=== PATIENT | female | born 1975 | race Caucasian/White ===

== ENCOUNTER 2025-02-27 13:19 | Outpatient (REF) | payer OTHER, SELFPAY ==
--- OUTSIDE RECORDS SUMMARY | 2025-02-27 17:17 | XMS_ITS | Clinical Summary ---
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 Role Phone Unavailable Primary Care Provider [...] Suicidal ideation 09/03/2024 Overview (09/03/2024): hospitalized at [facility] March 2018 Alcohol abuse 04/17/2017 Anxiety 06/08/2011 Moderate dysplasia of cervix 01/22/2010 Lump or mass in breast 12/01/2005 Immunizations Name Administration Dates Next Due Influenza, live, intranasal, trivalent (FluMist) 2yo to less than 50yo 09/06/2024 PPD Test 01/04/2021 [employer] SARS-CoV-2 COVID-19, mRNA, LNP-S, preservative free 02/13/2021,01/23/2021 Td Tetanus diptheria (Tdvax) 7yo and older 08/28 Tdap Tetanus diptheria acell ular pertussis (Boostrix; Adacel) 7yo and older 07/01/2024,05/04/2009 Surgical History Surgery Date Site/Laterality Comments CERVICAL BIOPSY W/ LOOP ELECTRODE EXCISION PROCEDURE: [place] CONIZATION CERVIX W/WO D&C RPR ELTRD EXC; [...] ideation DX:Suicidal id eation; COMMENT: hospitalized at [facility] March 2018 Depression DX:Depression Abnormal mammogram DX:Abnormal [...] in 12 months. BI-RADS: Category 2: Benign [address] [id number] [phone] Procedure Note Cristi Mota MD - 09/03/2024 [...] in 12 months. BI-RADS: Category 2: Benign [address] [id number] [phone] Lisa Aceves MD IMG XR PROCEDURES Final Result * Annual BMP Blood Test (06/24/2024) Pathologist [facility] Annual BMP Blood Test Abstracted Historical Provider HEALTH MAINTENANCE Final Result * (ABNORMAL) Lipid panel (06/24/2024) LDL/HDL Ratio 3 0 - 4 Triglycerides 98 0 - 150 mg/dL Cholesterol 223(A) 0 - 200 mg/dL HDL 69 >=40 mg/dL LDL Cholesterol 135(A) 0 - 100 mg/dL Blood Venous blood specimen / Unknown Result [facility] Provider LAB BLOOD ORDERABLES Ita l Result * HIV Screening (11/02/2020) HIV Screening Abstracted [facility] Provider HEALTH MAINTENANCE Final Result * Hepatitis C Screening (11/02/2020) Hepatitis C Screening Abstracted Historical Provider HEALTH MAINTENANCE Final Result * Pap Smear (01/27/2012) Pathologist [facility] Pap smear Abstracted, no interpretation Result [facility] Provider HEALTH MAINTENANCE Final Result from Last 3 Months or Most Recently Relevant to Health Maintenance Insurance [facility] [address] [place] [address]
[2025-02-28 03:19] LABS: Follicle Stimulating Hormone 140.7 mIU/mL
[2025-02-28 03:34] LABS: Syphilis Screen Nonreactive (Nonreactive)
[2025-02-28 03:49] LABS: HBsAGNum1 0.28 S/CO (0.00-0.99); HIV AB/AG Nonreactive (Nonreactive); HIV Num 1 0.07 S/CO (0.00-0.99); Hepatitis B Surface Antigen Negative (Negative); ~Hepatitis C Antibody Nonreactive (Nonreactive)
[2025-02-28 06:22] LABS: CT PCR NOT DETECTED (Not Detect.); NG PCR NOT DETECTED (Not Detect.)
[2025-03-03 15:09] LABS: HCV Log PCR <1.18 NOT DETECTED Log IU/mL (NOT DETECTED); HepC Viral Load <15 NOT DETECTED IU/mL (NOT DETECTED)
== END 2025-02-27 13:20 | disposition home or self-care (01) ==
LOC: HO.LAB 13:19
PROVIDERS: Visit Provider Advanced Practice Midwife
DX: R76.8 Other specified abnormal immunological findings in serum (principal); N89.8 Other specified noninflammatory disorders of vagina; Z20.2 Contact with and (suspected) exposure to infections with a predominantly sexual mode of transmission
CPT/HCPCS: 83001; 86780; 86803; 87340; 87389; 87491; 87522; 87591

== ENCOUNTER 2025-02-27 13:19 | Outpatient (AMB) | payer OTHER, SELFPAY ==
--- NOTE | 2025-02-27 13:32 | A.OFFVIS_ITS ---
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 She is sexually active with a partner. She has a history of a LEEP many years ago with Slade Bliss MD and she had some miscarriages including a loss at 16 weeks and then she had a successful term delivered at 38 weeks with the vacuum in a very complicated delivery and meconium at delivery necessitating transfer to [facility]. That child contracted some bacterium suspected to be meningitis and very suddenly of complete septic shock and DIC at 14 months. She did attend parental support sessions through [employer] for many years. It has been a few years since she did have client coordinator care she was seen at [facility] for many years but then also at [place] recently. She had her primary care provider through [place] but appointments have been challenging and she is switching over to [place] she has had regular mammograms and she has also had many lumps removed and markers placed she believes she was getting most of the breast care at the [facility] which she thought was part of referral from [place] though may have been at [facility] she is going to be meeting her new primary care provider was at a [facility] practice in [place] in the upcoming couple of months. 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 We had a conversation about this and if the hep C is positive I will refer her for information in Education and discussion of the issues to infectious disease. She went through early menopause at age 43 and she did says she had lots of testing done at [place] at the time and they said there was nothing abnormal it was just early menopause. Her partner is 60 years old and she would not want to conceive at this point in her life though she would have welcome that in her 30s, and earlier. [facility] Medical History (Updated 02/27/25 @ 16:52 by Lore Miller CNM) Anxiety Female Reproductive History Menstrual Age of Menarche: 10 Duration of menses: 3-5 days control method: none Total pregnancies: 1 Full term: 0 History of abnormal pap smear: Yes (1998 abn pap) Physical Exam Vital Signs: BMI result Body Mass Index 27.5 Const General: healthy appearing, comfortable, no acute distress, well developed and alert Nutritional Appearance: average body habitus Orientation/consciousness: patient oriented x3 Limitations: no limitations HEENT Head: Yes normocephalic Neck Neck: Yes normal visual inspection Chest Chest palpation & inspection: normal inspection of the chest Breast/axilla inspection: normal inspection of the breasts and normal inspection of the axillae Breast/axilla palpation: normal palpation of the breasts and normal palpation of the axillae Resp Effort & Inspection: normal respiratory effort GI Inspection: Yes normal to inspection, No Abdominal wall edema and No distended Palpation (GI): Soft to palpation and nontender Other: Erica more impulsive changes noted vagina pink moist some thinning of mucosa cervix is status post LEEP firm tightly closed uterus small midposition to anteverted mobile nontender adnexa nontender good muscle tone, General: Yes bladder normal to palpation External Female Exam: normal external appearance and normal appearance of the urethra Speculum Exam - Vagina: normal appearance of the vagina, normal palpation and normal vaginal discharge Speculum Exam - Cervix: normal appearance of the cervix, normal palpation and nontender Bimanual exam- vagina & uterus: normal bimanual exam, normal palpation, uterine size normal, bladder normal to palpation, consistency normal, normal palpation, uterine mobility normal, uterine shape normal, No Cervical tenderness present, non-tender and no cervical motion tenderness Bimanual Exam- Adnexa, other: normal adnexae, no masses, normal and No adnexal tenderness Neuro General: patient oriented x3 Assessment & Plan Assessment & Plan (1) Hepatitis C antibody detected: Comment: Hep C antibody detected at a recent hospitalization patient was told that all other confirmatory tests were negative patient wants another re test. Code(s): R76.8 - Other specified abnormal immunological findings in serum Category: Medical (2) Well woman exam with routine gynecological exam: Code(s): Z01.419 - Encounter for gynecological examination (general) (routine) without abnormal findings Category: Medical (3) Early menopause occurring in patient age younger than 45 years: Comment: Patient states she had full evaluations at the time at age 43, at [place], all negative. Code(s): E28.319 - Asymptomatic premature menopause Category: Medical (4) Cervical cancer screening: Comment: History of LEEP per Dr. Bliss late . Had cerclage with term after a 16 week loss delivered via vacuum with Dr. Ty Code(s): Z12.4 - Encounter for screening for malignant neoplasm of cervix Category: Medical (5) Breast cancer screening: Comment: Has had multiple masses removed and has markers seen at the [facility] [place]. says next mammogram due in June Code(s): Z12.39 - Encounter for other screening for malignant neoplasm of breast Category: Medical Plan Patient is here for new client coordinator exam. She is sexually active with a partner. She has a history of a LEEP many years ago with Slade Bliss MD and she had some miscarriages including a loss at 16 weeks and then she had a successful term delivered at 38 weeks with the vacuum in a very complicated delivery and meconium at delivery necessitating transfer to [facility]. That child contracted some bacterium suspected to be meningitis and very suddenly of complete septic shock and DIC at 14 months. She did attend parental support sessions through [employer] for many years. It has been a few years since she did have client coordinator care she was seen at [facility] for many years but then also at [place] recently. She had her primary care provider through [place] but appointments have been challenging and she is switching over to [place] she has had regular mammograms and she has also had many lumps removed and markers placed she believes she was getting most of the breast care at the [facility] which she thought was part of referral from [place] though may have been at [facility] she is going to be meeting her new primary care provider was at a [facility] practice in [place] in the upcoming couple of months. 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 We had a conversation about this and if the hep C is positive I will refer her for information in Education and discussion of the issues to infectious disease. She went through early menopause at age 43 and she did says she had lots of testing done at [place] at the time and they said there was nothing abnormal it was just early menopause. Her partner is 60 years old and she would not want to conceive at this point in her life though she would have welcome that in her 30s, and earlier. I recommend she refresher memory about exactly where she had all of her breast biopsies and care and if at all possible continue her assessments for her mammograms at that is site she will be meeting her new [facility] primary care provider within a month or 2 and she should then requested any referrals for mammograms take placed through her through the same site.. At her request I am reordering hep B hep C HIV syphilis testing as well as I through in hep C viral load in anticipation that the hep C maybe positive. Additionally I adding an FSH. Her next mammogram would be due in June which is some months after her primary care visit. She is trying to eat well and take care of herself and is eating a very healthy diet at this time and engaging and lots of support services and continued sobriety work. Because she is not on the portal and life is very stressful at this time I asked her to call early next week to obtain the lab results and to ask to speak to the nurse Orders: Orders Bacterial Vaginosis Panel Today N89.8 - Other specified noninflammatory disorders of vagina Hepatitis B Surface Antigen Today R76.8 - Other specified abnormal immunological findings in serum HIV Ab/Ag Today R76.8 - Other specified abnormal immunological findings in serum Syphilis Screen Today R76.8 - Other specified abnormal immunological findings in serum CT NG by PCR Today N89.8 - Other specified noninflammatory disorders of vagina, Z20.2 - Contact with and (suspected) exposure to infections with a predominantly sexual mode of transmission Pap Smear Today Z00.00 - Encounter for general adult medical examination without abnormal findings Hepatitis C Antibody Today R76.8 - Other specified abnormal immunological findings in serum Follicle Stimulating Hormone Today R76.8 - Other specified abnormal immunological findings in serum Hepatitis C Viral Load Today R76.8 - Other specified abnormal immunological findings in serum Coding Level of Care Code New Pt Prev Care 40-64y([id number]) Diagnoses Hepatitis C antibody detected R76.8 Well woman exam with routine gynecological exam Z01.419 Early menopause occurring in patient age younger than 45 years E28.319 Cervical cancer screening Z12.4 Breast cancer screening Z12.39 Time Spent (min) 60 Comment 100% eliciting history, making plan for followup
[2025-02-27 13:33] VITALS: BMI 27.5
--- OUTSIDE RECORDS SUMMARY | 2025-02-27 15:38 | XMS_ITS | Clinical Summary ---
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 07/01/2024 Active hydrOXYzine HCL (ATARAX) 25 mg tablet Take 1 Tablet by mouth 3 times daily. 07/01/2024 Active Active Problems Problem Noted Date Diagnosed Date Abnormal mammogram 09/03/2024 Depression 09/03/2024 Suicidal ideation 09/03/2024 Overview (09/03/2024): hospitalized at [facility] March 2018 Alcohol abuse 04/17/2017 Anxiety 06/08/2011 Moderate dysplasia of cervix 01/22/2010 Lump or mass in breast 12/01/2005 Immunizations Name Administration Dates Next Due Influenza, live, intranasal, trivalent (FluMist) 2yo to less than 50yo 09/06/2024 PPD Test 01/04/2021 [employer] SARS-CoV-2 COVID-19, mRNA, LNP-S, preservative free 02/13/2021,01/23/2021 Td Tetanus diptheria (Tdvax) 7yo and older 08/28 Tdap Tetanus diptheria acell ular pertussis (Boostrix; Adacel) 7yo and older 07/01/2024,05/04/2009 Surgical History Surgery Date Site/Laterality Comments CERVICAL BIOPSY W/ LOOP ELECTRODE EXCISION PROCEDURE: [place] CONIZATION CERVIX W/WO D&C RPR ELTRD EXC; COMMENT: LELE 3 BREAST BIOPSY PROCEDURE: BX BREAST; PERC NEEDLE CORE W/IMAG GUID; COMMENT: b/l breasts bxs-benign BREAST LUMPECTOMY PROCEDURE: HISTORICAL BREAST LUMPECTOMY; COMMENT: fibroadenoma rt. breast removed Medical History Medical History Date Comments Lump or mass in breast DX:Lump o r mass in breast Other specified personal his tory presenting hazards to health(V15.89) DX:Other specifie d personal history presenting hazards to health(V15.89); COMMENT: LELE 3 on LEEP S/P Leep 01/22/2010 DX:S/P LEEP Moderate dysplasia of cervix 01/22/2010 DX: Moderate dysplasia of cervix Anxiety 06/08/2011 DX:Anxiety Alcohol abuse 04/17/2017 DX:Alcohol abuse Suicidal ideation DX:Suicidal id eation; COMMENT: hospitalized at [facility] March 2018 Depression DX:Depression Abnormal mammogram DX:Abnormal m ammogram Family History Medical History Relation Name Comments Breast cancer Other [place] her, maternal Asthma Sister two sisters wit h asthma Colon cancer Neg Hx Ovarian cancer Neg Hx Relation Name Status Comments Other Sister Social History Tobacco Use Types Packs/Day Years Used Date Smoking Tobacco: Some Days Cigarettes Smokeless Tobacco: Never Alcohol Use Standard Drinks/Week Comments Yes 0 (1 standard drink = 0.6 oz pur e alcohol) Comments Unknown Sex and Gender Information Value Date Recorded Sex Assigned at Not on file Legal Sex Female 5:44 AM EST Gender Identity Not on file Sexual Orientation Not on file Obstetrics History Last Filed Vital Signs Vital Sign Reading Time Taken Comments Blood Pressure 144/80 09/02/2024 4:30 PM EDT Pulse 60 09/02/2024 4:11 PM EDT Temperature - - Respiratory Rate - - Oxygen Saturation - - Inhaled Oxygen Concentration - - Weight 79.8 kg (176 lb) 09/02/2024 4:11 PM EDT Height 165.1 cm (5' 5 ) 09/02/2024 4:11 PM EDT Body Mass Index 29.29 09/02/2024 4:11 PM EDT Plan of Treatment Health Maintenance Due Date Last Done Comments Hepatitis B Vaccines (1 of 3 - 19+ 3-dose series) 1994 Pneumococcal Vaccine: Pediatrics (0 to 5 Years) and At-Risk Patients (6 to 64 Years) (1 of 2 - PCV) 1994 Cervical Cancer Screening: Pap Smear 01/26/2015 01/27/2012 Colorectal Cancer Screening: Colonoscopy 10/09/2022 Social Influencers of Health Screening 10/09/2022 COVID-19 Vaccine ( season) 2024 02/13/2021, 01/23/2021 Hypertension/CHF/CAD Annual BMP Blood Test 06/24/2025 06/24/2024, 06/24/2024 Depression Screening 09/02/2025 09/02/2024 Breast Cancer Screening 08/17/2026 08/17/20 24, 08/17/2024, 08/14/2023, Additional history exists Cholesterol Screening (Lipid Panel) 06/24/2029 06/24/2024, 06/24/2024 DTaP,Tdap,and Td Vaccines (4 - Td or Tdap) 07/01/2034 07/01/2024, 08/28/2010, 05/04/2009 HIV Screening Completed 11/02/2020 Hepatitis C Screening Completed 11/02/2020 Influenza Vaccine Completed 09/06/2024 HIB Vaccines Aged Out No longer eligi ble based on patient's age to complete this topic HPV Vaccines Aged Out No longer eligi ble based on patient's age to complete this topic Hepatitis A Vaccines Aged Out No long er eligible based on patient's age to complete this topic IPV Vaccines Aged Out No longer eligi ble based on patient's age to complete this topic MMR Vaccines Aged Out No longer eligi ble based on patient's age to complete this topic Meningococcal ACWY Vaccine Aged Out N o longer eligible based on patient's age to complete this topic Meningococcal B Vaccine Aged Out No l onger eligible based on patient's age to complete this topic RSV Immunization Patients Under 20 months Aged Out No longer eligible based on patient's age to complete this topic Varicella Vaccines Aged Out No longer eligible based on patient's age to complete this topic Procedures Procedure Name Priority Date/Time Associated Diagnosis Comments HM DEPRESSION SCREENING Routine 09/02/2024 SCREENING MAMMOGRAPHY BI 2-VIEW BREAST INC CAD Routine 08/17/2024 10:09 AM EDT Encounter for screening mammogram for malignant neoplasm of breast ANNUAL BMP BLOOD TEST Routine 06/24/2024 LIPID PANEL Routine 06/24/2024 HEPATITIS C SCREENING Routine 11/02/2020 HIV SCREENING Routine 11/02/2020 PAP SMEAR Routine 01/27/2012 from Last 3 Months or Most Recently Relevant to Health Maintenance Results * Depression Screening (09/02/2024) Depression Screening Abstracted us Historical Provider MD HEALTH MAINTENANCE Final Result * SCREENING MAMMOGRAPHY BI 2-VIEW BREAST INC CAD (08/17/2024 10:09 AM EDT) Anatomical Region Laterality Modality Radiographic Kristen ging 07/26/2024 11:0 4 AM EDT Narrative 08/17/2024 12:27 PM EDT This is a summary report. The complete report is available in the patient's medical record. If you cannot access the medical record, please contact the sending organization for a detailed fax or copy. Study: SCREENING MAMMOGRAPHY BI 2-VIEW BREAST INC CAD Technique: Bilateral full-field digital screening mammography is obtained and read in conjunction with computer aided detection. ??Tomosynthesis as well as 2D C-View imaging were obtained. Comparison: Comparison made to multiple priors, most recent postbiopsy mammogram of the left breast on August 14, 2023, and most remote August 23, 2014. Breast composition: There are scattered areas of fibroglandular density. Right breast: Tissue marker from previous needle core biopsy. ??No suspicious masses, suspicious calcifications or other abnormalities are seen. Left breast: 2 tissue markers from previous needle core biopsies. ??No suspicious masses, suspicious calcifications or other abnormalities are seen. IMPRESSION: Impression: Bilateral breasts: Benign, no specific mammographic evidence of malignancy. ??Normal interval follow-up is recommended in 12 months. BI-RADS: Category 2: Benign [address] [id number] [id number] Procedure Note Cristi Mota MD - 09/03/2024 This is a summary report. The complete report is available in thepatient's medical record. If you cannot access the medical record, pleasecontact the sending organization for a detailed fax or copy. Study: SCREENING MAMMOGRAPHY BI 2-VIEW BREAST INC CAD Technique: Bilateral full-field digital screening mammography is obtainedand read in conjunction with computer aided detection. Tomosynthesis aswell as 2D C-View imaging were obtained. Comparison: Comparison made to multiple priors, most recent postbiopsymammogram of the left breast on August 14, 2023, and most remote 2013. Breast composition: There are scattered areas of fibroglandular density. Right breast: Tissue marker from previous needle core biopsy. Nosuspicious masses, suspicious calcifications or other abnormalities areseen. Left breast: 2 tissue markers from previous needle core biopsies. Nosuspicious masses, suspicious calcifications or other abnormalities areseen. IMPRESSION: Impression: Bilateral breasts: Benign, no specific mammographic evidence ofmalignancy. Normal interval follow-up is recommended in 12 months. BI-RADS: Category 2: Benign [address] [id number] [id number] Lisa Aceves MD IMG XR PROCEDURES Final Result * Annual BMP Blood Test (06/24/2024) Pathologist [facility] Annual BMP Blood Test Abstracted Historical Provider HEALTH MAINTENANCE Final Result * (ABNORMAL) Lipid panel (06/24/2024) LDL/HDL Ratio 3 0 - 4 Triglycerides 98 0 - 150 mg/dL Cholesterol 223(A) 0 - 200 mg/dL HDL 69 >=40 mg/dL LDL Cholesterol 135(A) 0 - 100 mg/dL Blood Venous blood specimen / Unknown Result [facility] Provider LAB BLOOD ORDERABLES Ita l Result * HIV Screening (11/02/2020) HIV Screening Abstracted [facility] Provider HEALTH MAINTENANCE Final Result * Hepatitis C Screening (11/02/2020) Hepatitis C Screening Abstracted Historical Provider HEALTH MAINTENANCE Final Result * Pap Smear (01/27/2012) Pathologist [facility] Pap smear Abstracted, no interpretation Result [facility] Provider HEALTH MAINTENANCE Final Result from Last 3 Months or Most Recently Relevant to Health Maintenance Insurance [facility] [address] [place] [address]
== END 2025-02-27 14:38 | disposition home or self-care (01) ==
LOC: HO.HWSM 13:19
PROVIDERS: Visit Provider Advanced Practice Midwife
DX: Z01.419 Encounter for gynecological examination (general) (routine) without abnormal findings (principal); R76.8 Other specified abnormal immunological findings in serum; E28.319 Asymptomatic premature menopause
CPT/HCPCS: 99386; 99459

== ENCOUNTER 2025-02-27 14:35 | Outpatient (REF) | payer OTHER, SELFPAY ==
[2025-02-28 11:23] LABS: Bacterial Vaginosis PCR POSITIVE (Negative); Candida Group PCR NOT DETECTED (Not Detect); Candida glab krusei PCR NOT DETECTED (Not Detect); Trichomonas vaginalis PCR NOT DETECTED (Not Detect)
[2025-03-04 15:02] LABS: HPV Genotype 16 Negative (Negative); HPV Genotype 18 Negative (Negative); HPV High Risk Negative (Negative)
== END 2025-02-27 14:36 | disposition home or self-care (01) ==
LOC: HO.LNP 14:35
PROVIDERS: Visit Provider Advanced Practice Midwife
DX: Z00.00 Encounter for general adult medical examination without abnormal findings (principal); N89.8 Other specified noninflammatory disorders of vagina; Z12.4 Encounter for screening for malignant neoplasm of cervix; Z11.51 Encounter for screening for human papillomavirus (HPV); Z87.42 Personal history of other diseases of the female genital tract
CPT/HCPCS: 81515; 87626; 88175

== ENCOUNTER 2025-02-27 14:37 | Outpatient (REF) | payer OTHER, SELFPAY | END 2025-02-27 14:38 | disposition home or self-care (01) | LOC: HO.HHCL 14:37 | PROVIDERS: Visit Provider Nurse Practitioner Family | DX: Z13.89 Encounter for screening for other disorder (principal) ==

== ENCOUNTER 2025-03-08 11:21 | Emergency (ER) | payer OTHER, SELFPAY ==
[2025-03-08] VITALS (8 sets, daily range): BP systolic 140–187; BP diastolic 78–122; PULSE 76–95; RESP 18–20; TEMP 36.7–37.2; O2SAT 96–99; BMI 27.7
--- NOTE | 2025-03-08 11:27 | ED.PSYCH ---
HPI - Psych General Chief Complaint: ETOH/Substance Use Stated Complaint: alcohol withdrawal, SI Time Seen by Provider: 03/08/25 11:45 Source: patient Mode of arrival: ambulatory Limitations: no limitations History of Present Illness ED Provider: Anita Ellis APRN HPI Narrative: 49 yo female with history of HTN, alcohol use disorder here with complaints of feeling suicidal with plan to overdose on her home clonidine. History of overdose on prescription medications in the past with ICU admission. Drinks 1-2 pints of vodka daily. Last drink 11pm last evening. No HI, hallucinations. No physical complaints. Related Data Home Medications ?Medication ?Instructions ?Recorded ?Confirmed clonidine HCl 0.1 mg tablet 0.1 mg PO TID 02/27/25 03/08/25 hydroxyzine HCl 25 mg tablet 25 mg PO TID Anxiety 02/27/25 03/09/25 gabapentin 100 mg capsule 100 mg PO BEDTIME 03/08/25 03/08/25 methocarbamol 500 mg tablet 500 mg PO BID muscle pain 03/08/25 03/08/25 Allergies Allergy/AdvReac Type Severity Reaction Status Date / Time No Known Allergies Allergy Verified 03/08/25 11:30 Review of Systems Review of Systems: Yes all other systems are reviewed and are negative Constitutional: Constitutional: Reports no additional constitutional complaints, Denies body ache(s), Denies chills, Denies fever(s), Denies headache(s) and Denies weakness Eyes: Eyes: Reports no additional eye complaints and Denies change in vision ENT: Reports system reviewed and no additional complaints, except as documented, Denies dizziness, Denies headache(s), Denies nasal congestion, Denies nasal discharge and Denies neck pain Cardiovascular: Cardiovascular: Reports no additional cardiovascular complaints, Denies chest pain, Denies leg edema and Denies dyspnea Respiratory: Respiratory: Reports no additional respiratory complaints, Denies cough and Denies dyspnea Gastrointestinal: Gastrointestinal: Reports no additional gastrointestinal complaints, Denies abdominal pain, Denies diarrhea, Denies nausea and Denies vomiting Genitourinary: Genitourinary: Reports no additional female genitourinary complaints and Denies urinary incontinence Musculoskeletal: Musculoskeletal: Reports no additional musculoskeletal complaints, Denies back pain, Denies arthralgias, Denies joint swelling, Denies neck pain, Denies numbness and Denies tingling Integumentary/Breasts: Skin/Breast: Reports system reviewed and no additional complaints, except as docu and Denies rash Neurologic: Reports system reviewed and no additional complaints, except as documented, Denies Abnormal speech present, Denies dizziness, Denies headache(s), Denies numbness, Denies tingling and Denies weakness Psychiatric: Psychiatric: Denies homicidal ideation and Reports suicidal ideation [facility] Past Medical History Attestation statement: The following information was validated with the patient. Source: old records reviewed and nursing notes reviewed Medical History Anxiety Social History Social History Alcohol intake: current Alcohol intake frequency: 3 or more drinks per day Alcohol type: hard liquor Smoked in Last 30 Days: Yes Use of substances other than those prescribed or required for medical reasons: No Advance Directives: No Advance Directives Information Provided: No Patient : No Physical Exam Vital Signs: Vital Signs: Last Vital Signs Temp 98.1 F 03/11/25 07:59 Pulse 85 03/11/25 07:59 Resp 16 03/11/25 07:59 BP 128/76 03/11/25 08:04 Pulse Ox 100 03/11/25 07:59 O2 Del Method Room Air 03/11/25 07:59 BMI result Body Mass Index 27.7 Const: General: alert and anxious Orientation/consciousness: patient oriented x3 Limitations: no limitations HEENT: Head: Yes normal to inspection Ears: hearing grossly normal bilaterally General nose exam: Normal external nose present Face and sinus: Yes normal facial exam Mouth: Normal oral and palatal mucosa present Throat: Yes posterior oropharynx normal Eyes: General: appearance normal, both eyes and all related structures Pupils: Equal, round and reactive pupils present Neck: Neck: Yes normal visual inspection Chest: Chest palpation & inspection: normal inspection of the chest Resp: Effort & Inspection: normal respiratory effort Auscultation: clear to auscultation bilaterally Cardio: Rate: regular rate Rhythm: regular rhythm Peripheral pulses: Peripheral pulses 2+ throughout GI: Inspection: Yes normal to inspection Palpation (GI): Soft to palpation and nontender Auscultation: normal bowel sounds Back/Spine/Pelvis: Thoracic/Lumbar Spine: thoracic and lumbar spine normal to inspection Skin: General skin exam: no rashes or lesions noted Neuro: Other: +tremor General: patient oriented x3, no focal motor deficits and normal sensation to monofilament Cranial nerves: Yes CN's II-XII intact bilaterally and Yes Equal, round and reactive pupils present Cognition (Neuro): normal cognition Speech: No Abnormal speech present Gait exam (Neuro): Normal gait present Motor exam (neuro): 5/5 motor strength present throughout Extrem: General: Yes normal to inspection Course Course Course Narrative: This is an RME performed by Alejandro Mack CNP: Additional HPI, ROS, PE not included below will be deferred to primary provider. Patient is a 49-year-old female who emergency department stating I'm having severe alcohol withdrawals expresses that she is feeling shaky an ativan would take care of that denies any history alcohol withdrawal seizure. Reports that she last drank 22:00 - 23:00 last night, drinking 1-2 pints vodka daily. Endorses having suicidal ideations, various plans. contemplating taking bottle of clonidine, has thought of hanging self. State she was slated to go to a detox center but felt they would not address the depression / S.I. Endorses a prior SI attempt resulting in an ICU stay Plan: Serum labs, CIWA, toxicology Reevaluation(s) Reevaluation #1: Time: 16:35 Date: 03/08/25 Provider: Anita Ellis NP Patient placed in physician observation for psychiatric evaluation.? No current complaints. VS stable.? Patient is in bed search status. Will continue to monitor. Time: 09:13 Date: 03/10/25 Provider: JILL Chang Patient in physician observation for psychiatric evaluation.? No acute events reported overnight. No current complaints. VS stable.? Seen by the care team, recommending inpatient bed search. We will continue to monitor. 03/10/2025 1820 - I went and assessed patient as there was concerns that patient wanted to leave. Patient states that she is not appreciating any suicidal or homicidal ideation. At this time, the care team is working on placement at [facility], and she may potentially have a bed available at 9:15 a.m. this evening. I discussed these details with patient, she is very frustrated would like to leave. She is very argumentative, stating that we have no reason to keep her here. I tried to redirect patient to discuss just further details as I wanted to get a better history to appropriately treat her in her best interest. She states that she just wants to walk out to have a cigarette. I told her that this is not possible however we can medicate her with nicotine gum/lozenges/patches. She states that she would like to be discharged, and she will drive his with river [employer]. She states that she wants to place her car in a safe location, and that she does not want to leave this here overnight. She states that her will pick her up. She then reports that if she is unable to be discharge, she will wait outside for her to be discharged to [facility]. I discussed with her that there is a chance that if she does leave the hospital she may not be able to go to [facility]. I stressed the importance of her staying. She is adamant that she wants to leave. Care team consultation will attempt to call [facility] for possible transfer for [employer]. Medications Administered Generic Name Dose Route Start Last Admin Trade Name Freq PRN Reason Stop Dose Admin Clonidine HCl 0.1 mg 03/08/25 21:00 03/11/25 08:04 Clonidine Hcl 0.1 Mg Tablet PO 0.1 mg TID SUJATHA Administration Protocol Gabapentin 100 mg 03/08/25 21:00 03/10/25 20:47 Gabapentin 100 Mg Capsule PO 100 mg BEDTIME SUJATHA Administration Hydroxyzine HCl 25 mg 03/08/25 19:19 03/10/25 20:48 Hydroxyzine Hcl 25 Mg Tablet PO 25 mg BID PRN Administration Anxiety Lorazepam 2 mg 03/09/25 20:43 03/11/25 10:29 Lorazepam 1 Mg Tablet PO 2 mg Q4H PRN Administration Alcohol Withdrawal Methocarbamol 500 mg 03/08/25 21:00 03/11/25 08:04 Methocarbamol 500 Mg Tablet PO 500 mg BID SUJATHA Administration Discontinued Medications Generic Name Dose Route Start Last Admin Trade Name Freq PRN Reason Stop Dose Admin Acetaminophen 975 mg 03/08/25 13:22 03/08/25 13:26 Acetaminophen 325 Mg Tablet PO 03/08/25 13:23 975 mg ONCE ONE Administration Acetaminophen 650 mg 03/10/25 11:35 03/10/25 11:39 Acetaminophen 325 Mg Tablet PO 03/10/25 11:36 650 mg ONCE ONE Administration Clonidine HCl 0.1 mg 03/08/25 17:07 03/08/25 17:14 Clonidine Hcl 0.1 Mg Tablet PO 03/08/25 17:08 0.1 mg ONCE ONE Administration Protocol Lorazepam 2 mg 03/08/25 11:53 03/08/25 12:07 Lorazepam 1 Mg Tablet PO 03/08/25 11:54 2 mg ONCE ONE Administration Lorazepam 1 mg 03/08/25 17:07 03/08/25 17:14 Lorazepam 1 Mg Tablet PO 03/08/25 17:08 1 mg ONCE ONE Administration Lorazepam 2 mg 03/09/25 03:13 03/09/25 03:17 Lorazepam 1 Mg Tablet PO 03/09/25 03:14 2 mg ONCE ONE Administration Lorazepam 2 mg 03/09/25 08:26 03/09/25 08:30 Lorazepam 1 Mg Tablet PO 03/09/25 08:27 2 mg ONCE ONE Administration Nicotine 14 mg 03/10/25 17:48 03/10/25 18:38 Nicotine 14 Mg Patch.Td24 TRANSDERMA 03/10/25 17:49 Not Given ONCE ONE Nicotine Polacrilex 2 mg 03/10/25 17:48 03/10/25 18:38 Nicotine Polacrilex Lozenge 2 Mg Lozenge BUCCAL 03/10/25 17:49 Not Given ONCE ONE Ondansetron HCl 4 mg 03/08/25 13:22 03/08/25 13:26 Ondansetron Odt 4 Mg Tab.Rapdis TRANSLINGU 03/08/25 13:23 4 mg ONCE ONE Administration Ondansetron HCl 4 mg 03/08/25 17:07 03/08/25 17:16 Ondansetron Odt 4 Mg Tab.Rapdis TRANSLINGU 03/08/25 17:08 4 mg ONCE ONE Administration Ondansetron HCl 4 mg 03/10/25 11:36 03/10/25 11:39 Ondansetron Odt 4 Mg Tab.Rapdis TRANSLINGU 03/10/25 11:37 4 mg ONCE ONE Administration Medical Decision Making Medical Decision Making MDM Narrative: 49 yo female with history of HTN, alcohol use disorder here with complaints of feeling suicidal with plan to overdose on her home clonidine. History of overdose on prescription medications in the past with ICU admission. Drinks 1-2 pints of vodka daily. Last drink 11pm last evening. No HI, hallucinations. No physical complaints. +hypertensive, tremor with initial CIWA 22. Will obtain labs, [facility]. Will give ativan and re-assess. No concern for acute ingestion or trauma. Once medically cleared with need crisis consult. Patient is seen by care team. Not suicidal not homicidal no tremors feels comfortable wants to stop drinking is going to detox. Currently in stable condition. A detox facility has been located for patient. She is willing to go. Being discharged home in stable condition. Differential Diagnosis Differential Diagnoses: The differential diagnosis associated with the presentation includes alcohol use disorder, depression Admission/Observation Consideration of admission/observation: Escalation of care including admission/observation considered Consult Healthcare Provider Management of the patient was discussed with: Behavioral Health Provider 1400-seen by crisis. plan for inpatient bed search Lab Data MDM Lab Attestation statement: I reviewed the patient's lab results. 03/08/25 13:07 03/08/25 13:07 Labs: Lab Results 03/08/25 03/09/25 03/10/25 Range/Units 13:07 03:16 08:54 WBC 7.2 (4.8-10.8) X10*3/uL RBC 4.46 (4.20-5.50) X10*6/uL Hgb 14.0 (12.0-16.0) g/dl Hct 39.1 (37.0-47.0) % MCV 87.7 (80.0-98.0) fL MCH 31.4 (27.0-33.0) pg MCHC 35.8 H (31.0-35.0) g/dl RDW 12.5 (11.0-16.0) % Plt Count 264 (160-400) X10*3/uL MPV 9.0 L (9.4-12.3) fL Immature Gran % (Auto) 0.3 (0.0-0.4) % Neut % (Auto) 76.2 H (45-73) % Lymph % (Auto) 16.5 L (20-40) % [place] % (Auto) 5.9 (2-11) % Eos % (Auto) 0.1 (0-4) % Baso % (Auto) 1.0 (0-2) % Lymph # (Auto) 1.2 (1.2-4.9) X10*3/uL [place] # (Auto) 0.4 (0.1-1.2) X10*3/uL Eos # (Auto) 0.0 (0.0-0.4) X10*3/uL Baso # (Auto) 0.1 (0.0-0.2) X10*3/uL Abs Immat Gran (auto) 0.02 (0.00-0.03) X10*3/uL Absolute Neuts (auto) 5.5 (2.0-8.3) x10*3/uL Absolute Nucleated RBC 0.000 (0.0-0.012) X10*3/uL Nucleated RBC % (auto) 0.0 (0.0-0.2) /100WBC Sodium 140 (135-145) mmol/L Potassium 3.8 (3.3-5.1) mmol/L Chloride 102 (96-108) mmol/L Carbon Dioxide 29 (22-29) mmol/L Anion Gap 13 (12-20) BUN 8 L (9-16) mg/dL Creatinine 0.71 (0.5-1.4) mg/dL Estim Creat Clear Calc 97.3 Estimated GFR > 60 Random Glucose 98 (60-115) mg/dL Calcium 9.9 (8.4-10.2) mg/dL Magnesium 1.8 (1.6-2.6) mg/dL Total Bilirubin 0.5 (0.0-1.0) mg/dL AST 34 H (5-31) U/L ALT 30 (0-31) U/L Alkaline Phosphatase 95 (39-117) U/L Total Protein 7.0 (6.5-8.0) g/dL Albumin 4.2 (3.5-5.0) g/dL Lipase 16 (8-78) U/L Urine Color Yellow Urine Appearance Turbid Urine pH 6.5 (5.0-9.0) Ur Specific [place] 1.020 (1.005-1.025) Urine Protein Negative (Neg-Trace) mg/dL Urine Glucose (UA) Negative (Negative) mg/dL Urine Ketones Trace (Negative) mg/dL Urine Blood Negative (Negative) Urine Nitrite Negative (Negative) Ur Leukocyte Esterase Negative (Negative) Urine Test NEGATIVE (NEGATIVE) Urine Opiates Screen Not Detected (Not Detect) Ur Buprenorphine Scrn Not Detected (Not Detect) ng/mL Ur Oxycodone Screen Not Detected (Not Detect) ng/mL Urine Methadone Screen Not Detected (Not Detect) ng/mL Urine Fentanyl Screen Not Detected (Not Detect) Ur Barbiturates Screen Not Detected (Not Detect) Ur Phencyclidine Scrn Not Detected (Not Detect) Ur Amphetamines Screen Not Detected (Not Detect) U Benzodiazepines Scrn POSITIVE H (Not Detect) Urine Cocaine Screen Not Detected (Not Detect) U Marijuana (THC) Screen Not Detected (Not Detect) Ethyl Alcohol < 10 mg/dL Discharge Plan Discharge Clinical Impression: Alcohol withdrawal syndrome, Depression Patient Disposition: Home, Self-Care Instructions: Depression (ED) Prescriptions: No Action methocarbamol 500 mg tablet 500 mg PO BID gabapentin 100 mg capsule 100 mg PO BEDTIME clonidine HCl 0.1 mg tablet 0.1 mg PO TID hydroxyzine HCl 25 mg tablet 25 mg PO TID Referrals: Physician,Unknown J [Primary Care Provider] - (Please go to detox as per care team) Stand Alone Forms: Work/School Release Print Language: Telugu
[2025-03-08] MEDS: LORazepam 1 MG TABLET 2 MG PO (12:07)
--- NOTE | 2025-03-08 12:18 | PC.NURSE ---
pt presents from home via private vehicle c/o alcohol withdrawal. Pt reports drinking 1-2 pints of vodka/day. Pt reports last drink at 2300. Pt sts that she was supposed to report to detox today, however she realizes that she needs mental health attention in addition to assistance with detox. (-) HI, (+) SI w/plan to overdose on her prescribed clonidine. Pt also sts that she has also considered hanging herself. 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 She stated that she has spoken to her job about her problem with ETOH, and they called her last night to check in on her, which pt sts was comforting to her. Pt has a history of ETOH withdrawal, and is usually seen at [facility].
[2025-03-08 13:13] LABS: MANUAL DIFF FLAG NO
[2025-03-08 13:14] LABS: Basophils Absolute Auto 0.1 X10*3/uL (0.0-0.2); Eosinophils Percent Auto 0.1 % (0-4); Hematocrit 39.1 % (37.0-47.0); Imm Gran Abs Auto 0.02 X10*3/uL (0.00-0.03); Imm Gran Pct Auto 0.3 % (0.0-0.4); Lymphocytes Absolute Auto 1.2 X10*3/uL (1.2-4.9); Lymphocytes Percent Auto 16.5 % (20-40); Mean Corpuscular HGB Conc 35.8 g/dl (31.0-35.0); Mean Corpuscular Hemoglobin 31.4 pg (27.0-33.0); Mean Corpuscular Volume 87.7 fL (80.0-98.0); Monocytes Absolute Auto 0.4 X10*3/uL (0.1-1.2); Monocytes Percent Auto 5.9 % (2-11); Neutrophils Absolute Auto 5.5 x10*3/uL (2.0-8.3); Neutrophils Percent Auto 76.2 % (45-73); Platelet Count 264 X10*3/uL (160-400); Red Blood Count 4.46 X10*6/uL (4.20-5.50); Red Cell Distribution Width 12.5 % (11.0-16.0); White Blood Count 7.2 X10*3/uL (4.8-10.8)
[2025-03-08] MEDS: Ondansetron ODT 4 MG TAB.RAPDIS TRANSLINGU ×2 (13:26→17:16)
[2025-03-08] MEDS: Acetaminophen 325 MG TABLET 975 MG PO (13:26)
[2025-03-08 13:28] LABS: Alanine Aminotransferase 30 U/L (0-31); Albumin Level 4.2 g/dL (3.5-5.0); Anion Gap 13 (12-20); Aspartate Amino Transferase 34 U/L (5-31); Blood Urea Nitrogen 8 mg/dL (9-16); Calcium 9.9 mg/dL (8.4-10.2); Carbon Dioxide 29 mmol/L (22-29); Chloride 102 mmol/L (96-108); Creatinine Clr Calc Pharmacy 97.3; Estimated Glomerular Filt Rate > 60; Ethanol < 10 mg/dL; Glucose Random 98 mg/dL (60-115); Lipase 16 U/L (8-78); Magnesium 1.8 mg/dL (1.6-2.6); Potassium 3.8 mmol/L (3.3-5.1); Sodium 140 mmol/L (135-145)
[2025-03-08 13:40] LABS: Alkaline Phosphatase 95 U/L (39-117); Bilirubin Total 0.5 mg/dL (0.0-1.0)
--- NOTE | 2025-03-08 13:40 | PC.NURSE ---
pt medicated per JAN for headache, and c/o nausea- CIWA scale 13 at this time BOARD WRITER Pascucci aware
--- NOTE | 2025-03-08 14:42 | PC.NURSE ---
Ryan Yi called via phone to get update on pt, he was not in the chart to release info too, however pt did advise verbally it was okay for us to give him information over the phone. Update given to Ryan at this time.
--- NOTE | 2025-03-08 17:13 | PC.NURSE ---
This RN just spent an extended amount of time talking with patient about current plan, and symptoms. Pt is very tearful, reporting she does not want to sit here all weekend, would want to just leave for detox, or go upstairs to M3/M5 this RN provided extended amount of emotional support. This RN did discuss the process of how dual dx works, vs just mental health. Patrick did eval this AM, at this time we do not have a dispo plan. Pt made aware of this. Pt did voluntarily sign her section 12, this RN did explain that yes she did sign in voluntarily however if they patrick and feel that she is not safe they can also tell her she is not able to be able to leave on her own at that point. This RN did talk with provider about ordering more medication to help with her anxiety and keeping her comfortable. This RN did note to her that we will continually reassess her, and up date the plan of care for her as things are progressing with her care. Pt did seem to take in all the information but she did just keep repeating that she does not want to wait around all weekend, that she was honest with us because she felt like she should be but is now regretting it. More emotional support provided at this time about her dual dx and that for her only focusing on ETOH and or SI part. Attempting to contact care team at this time.
[2025-03-08] MEDS: cloNIDine HCL 0.1 MG TABLET PO ×2 (17:14→19:57)
[2025-03-08] MEDS: LORazepam 1 MG TABLET PO (17:14)
--- NOTE | 2025-03-08 19:29 | PC.NURSE ---
Pt agitated in regards to staying here in the hospital overnight, asking multiple clarifying questions repeatedly such as are you sure I have to stay here , I can go upstairs anytime now if you want , I can actually just go to detox now . Pt is aware of plan of care for dual dx bedsearch and that she will be evaluated again by the CARE team tomorrow given that there are no beds available tondeonte
[2025-03-08] MEDS: methocarbamoL 500 MG TABLET PO (19:57)
[2025-03-08] MEDS: Gabapentin 100 MG CAPSULE PO (19:57)
--- NOTE | 2025-03-09 03:08 | PC.NURSE ---
pt is feeling anxiouse, hand tremors, tingeling feeling and a headache. pt is refusing htydrochloride states she wants ativan. provider made aware.
[2025-03-09 03:11] VITALS: BP 165/106; PULSE 68; RESP 17; TEMP 36.6; O2SAT 99
--- NOTE | 2025-03-09 03:11 | PC.NURSE ---
Dr Elizondo made aware of pt status and a verbal order for atian 2mg po received.
[2025-03-09] MEDS: LORazepam 1 MG TABLET 2 MG PO ×3 (03:17→20:58)
[2025-03-09 03:25] LABS: Appearance Urine Turbid; Color Urine Yellow; Glucose Urine UA Negative (Negative); Leukocyte Esterase Urine Negative (Negative); Nitrite Urine Negative (Negative); PH 6.5 (5.0-9.0); Urine Blood Negative (Negative); Urine Ketones Trace mg/dL (Negative); Urine Protein Negative (Neg-Trace)
[2025-03-09 03:37] LABS: Amphetamine Screen Urine Not Detected (Not Detect); Barbiturates, Urine Not Detected (Not Detect); Benzodiazepines Screen Urine POSITIVE (Not Detect); Buprenorphine Scr Not Detected (Not Detect); Cannabinoid Screen Urine Not Detected (Not Detect); Cocaine Screen Urine Not Detected (Not Detect); Fentanyl, urine Not Detected (Not Detect); Methadone Screen, Urine Not Detected (Not Detect); Opiate Screen Urine Not Detected (Not Detect); Oxycodone Screen Urine Not Detected (Not Detect); Phencyclidine Screen Urine Not Detected (Not Detect)
--- NOTE | 2025-03-09 04:35 | PC.NURSE ---
pt is resting comfortably door closed and lights out.
[2025-03-09] MEDS: methocarbamoL 500 MG TABLET PO ×2 (08:10→20:37)
[2025-03-09] MEDS: cloNIDine HCL 0.1 MG TABLET PO ×3 (08:11→20:37)
--- NOTE | 2025-03-09 08:31 | PC.NURSE ---
CIWA 10, order for lorazepam obtained.
--- NOTE | 2025-03-09 08:37 | PHA.MEDREC ---
Pharmacy Consult ? Medication Reconciliation RN has completed the medication reconciliation , [facility], [place] reviewed.
[2025-03-09 14:27] VITALS: BP 138/99; PULSE 75; RESP 16; TEMP 36.6; O2SAT 97
[2025-03-09] MEDS: hydrOXYzine HCL 25 MG TABLET PO ×2 (14:43→20:37)
[2025-03-09 20:06] VITALS: BP 161/104; PULSE 71; RESP 16; TEMP 36.4; O2SAT 99
[2025-03-09 20:37] VITALS: BP 161/104
[2025-03-09] MEDS: Gabapentin 100 MG CAPSULE PO (20:37)
[2025-03-10] VITALS (7 sets, daily range): BP systolic 137–145; BP diastolic 89–95; PULSE 74–76; RESP 16–18; TEMP 36.5–36.6; O2SAT 96–100
--- NOTE | 2025-03-10 | ECG_ITS ---
Test Reason : pysch Blood Pressure : */* mmHG Vent. Rate : 87 BPM Atrial Rate : 87 BPM P-R Int : 154 ms QRS Dur : 88 ms QT Int : 358 ms P-R-T Axes : 68 -6 1 degrees QTcB Int : 430 ms Normal sinus rhythm Nonspecific T wave abnormality Abnormal ECG No previous ECGs available Referred By: Anita Ellis Electronically Signed By: NORMA OLIVO
[2025-03-10] MEDS: LORazepam 1 MG TABLET 2 MG PO ×4 (02:26→16:30)
--- NOTE | 2025-03-10 06:03 | PC.NURSE ---
Patient slept through the night, no distress observed/reported except CIWA @ 2028 was 12 and @ 0213 7, PRN ativan administered as ordered with + effect, 15 minutes safety check, no behavior and safety concerns, meds and meals compliant, disposition per care team is section-12 inpatient bed search, will continue to monitor
[2025-03-10] MEDS: methocarbamoL 500 MG TABLET PO ×2 (08:55→20:47)
[2025-03-10] MEDS: cloNIDine HCL 0.1 MG TABLET PO ×3 (08:55→20:47)
[2025-03-10 09:41] LABS: UPreg QC Valid YES; Urine Pregnancy NEGATIVE (NEGATIVE)
--- NOTE | 2025-03-10 09:50 | PC.NURSE ---
Pt anxious, continuously coming to RN station asking when she's leaving because it's been 72 hours ; denies SI at this time; requesting to speak with care team
[2025-03-10] MEDS: Acetaminophen 325 MG TABLET 650 MG PO (11:39)
[2025-03-10] MEDS: Ondansetron ODT 4 MG TAB.RAPDIS TRANSLINGU (11:39)
--- NOTE | 2025-03-10 14:22 | PC.NURSE ---
Pt becoming increasingly agitated, stating we aren't letting her see a clinician because of her health insurance; this RN has reached out to care team to see if they can see pt and pt told this numerous times over many hours; this RN reached out to care team again regarding pt's request
--- NOTE | 2025-03-10 17:40 | PC.NURSE ---
Pt continues to ask to leave repeatedly and go to detox; pt speaking with KAYLEY at this time
--- NOTE | 2025-03-10 19:21 | PC.NURSE ---
patient appears to remain at rest preently respirations are even and unlabored patie nt appears in no distress
[2025-03-10] MEDS: Gabapentin 100 MG CAPSULE PO (20:47)
[2025-03-10] MEDS: hydrOXYzine HCL 25 MG TABLET PO (20:48)
[2025-03-11 06:38] VITALS: BP 142/101; PULSE 72; RESP 16; TEMP 36.6; O2SAT 98
[2025-03-11] MEDS: LORazepam 1 MG TABLET 2 MG PO ×2 (06:41→10:29)
--- NOTE | 2025-03-11 07:41 | PC.NURSE ---
Assumed care of patient at 0645, patient appears to be in no apparent distress, anxious about going to [facility] for detox, frequently asking for updates. Pt now resting in bed
[2025-03-11 07:59] VITALS: BP 128/76; PULSE 85; RESP 16; TEMP 36.7; O2SAT 100
[2025-03-11 08:04] VITALS: BP 128/76
[2025-03-11] MEDS: cloNIDine HCL 0.1 MG TABLET PO (08:04)
[2025-03-11] MEDS: methocarbamoL 500 MG TABLET PO (08:04)
[2025-03-11 11:43] VITALS: BP 121/69; PULSE 84; RESP 16; TEMP 36.9; O2SAT 99
== END 2025-03-11 11:51 | disposition home or self-care (01) ==
PROVIDERS: Nurse Practitioner Family; Emergency Provider Emergency Medicine
DX: F10.139 Alcohol abuse with withdrawal, unspecified (principal); Y90.0 Blood alcohol level of less than 20 mg/100 ml; F32.A Depression, unspecified; R45.851 Suicidal ideations; R25.1 Tremor, unspecified; I10 Essential (primary) hypertension; Z91.51 Personal history of suicidal behavior; Z79.899 Other long term (current) drug therapy
CPT/HCPCS: 36415; 80053; 80307; 81003; 81025; 83690; 83735; 85025; 93005; 99285; S9485

== ENCOUNTER → 2025-03-10 08:21 | Outpatient (BNV) | payer OTHER, SELFPAY | PROVIDERS: Emergency Provider Emergency Medicine; Visit Provider Internal Medicine | DX: R94.31 Abnormal electrocardiogram [ECG] [EKG] (principal); Z13.6 Encounter for screening for cardiovascular disorders | CPT/HCPCS: 93010 ==